=== PATIENT | female | born 1970 | race Caucasian/White ===

== ENCOUNTER 2017-05-10 22:23 | Inpatient (IN) | payer SELFPAY ==
[2017-05-11] MEDS ORDERED: Dextrose 50% Abboject 50 ML SYRINGE SLOW IVP PRN (00:30)
[2017-05-11] MEDS ORDERED: Ondansetron ODT 4 MG TAB PO PRN (00:30)
[2017-05-11] MEDS ORDERED: Morphine 2 MG/ML SYRINGE SLOW IVP PRN (00:30)
[2017-05-11] MEDS ORDERED: Dextrose 5% in Water 1,000 ML IV PRN (00:30)
[2017-05-11] MEDS ORDERED: Sodium Chloride 0.9% 1,000 ML IV SCH ×2 (00:33→00:45)
[2017-05-11 01:03] LABS: Hemoglobin A1c 11.3 % (4.0-6.0)
[2017-05-11 01:08] VITALS: BMI 33.4
--- NOTE | 2017-05-11 04:14 | HP-2 ---
CODE STATUS: FULL. PRIMARY CARE PHYSICIAN: Demar celeste. ATTENDING: Dr. Cornelius. PGY-1: Dr. Pina. CHIEF COMPLAINT: Cellulitis, right upper back. HISTORY OF PRESENT ILLNESS: This is a 47-year-old female that presents with worsening right upper b ack lesion. She states she thought it started as a pimple or an ant bite, but it continually progre ssed. She went to an outpatient facility and was given Keflex, Cipro and Tylenol #3 for the treatme nt. However, the lesion continued to progress and grow. She woke up and it was large and was hurti ng a lot more, so she went to the [facility] for treatment. In the [facility], she was gi jenny incision and drainage and then transferred to [place], because of lack of surgical backup. She de nied any fevers or chills. She denied any other illnesses. 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 PAST MEDICAL HISTORY: None. PAST SURGICAL HISTORY: Tubal ligation, adenoidectomy, left knee surgery. ALLERGIES: No known drug allergies. MEDICATIONS: None. SOCIAL HISTORY: She has a 89-[id number]-oars smoking history and is currently smoking. She denies any al cohol. She does admit to alcohol use socially. She denies any drug use. REVIEW OF SYSTEMS: General: She admits to fevers and chills. She denies any weight change, night sweats, or fatigue. Eyes: She denies any vision changes or eye pain. ENT: Denies any nasal conge stion, rhinorrhea, or sore throat. Respiratory: She denies any cough, congestion, shortness of chalino ath. Cardiovascular: Denies any chest pain, palpitations, edema. Gastrointestinal: She admits to nausea. Denies any vomiting, diarrhea, constipation, abdominal hussain n, GI bleeding. Genitourinary: She denies incontinence, dysuria. Skin: She does admit to the rash and lesion especially in right upper back. Musculoskeletal: Rich es any pain, tenderness, stiffness, swelling or arthritis in the joints. Neurologic: Denies weakne ss, numbness, syncope or seizures. Psychiatric: She denies anxiety or depression. PHYSICAL EXAMINATION: VITAL SIGNS: Blood pressure 120/82, pulse 92, respiration 16, temperature max 98.7, pulse ox 98% on room air, current weight is 100 kilos. GENERAL: She is alert and oriented x4. She is obese, appropriately interactive. EYES: PERRLA. Conjunctivae within normal limits. ENT: Nasal mucosa and oropharynx within normal limits. NECK: Supple, without lymphadenopathy, without thyromegaly, without bruit. CARDIOVASCULAR: Regular rate and rhythm, no murmur. Radial and pedal pulses were equal bilaterally . RESPIRATORY: Normal effort, no retractions. LUNGS: Clear to auscultation bilaterally. SKIN: Warm and dry. She did have a 10 cm x 3 cm area of erythema and induration over the area of [facility] right upper scapula. She also has multiple other scratching lesions all of her body. ABDOMEN: Soft, nontender to palpation. Bowel sounds are present x4. No mass or distention. EXTREMITIES: No clubbing, cyanosis or edema. MUSCULOSKELETAL: Structure, tone, muscle strength and range of motion within normal limits. NEUROLOGIC: No focal neurologic deficits. Sensation was within normal limits. Cranial nerves II t hrough XII grossly intact. GCS was 15. PSYCHIATRIC: She was appropriate. LABORATORY DATA: She had a white blood cell count of significant 20.1, platelet count 416, hemoglob in 14.1, hematocrit 44.3. She had 2% bands, 83% neutrophils. Sodium was 132, potassium 3.9, chlori de 101, bicarbonate 20, BUN 8, creatinine 0.88, glucose 323, calcium 8.9, total protein 7.2, albumin 3.9, AST 7, ALT 10, alkaline phosphatase 134. ASSESSMENT AND PLAN: A 47-year-old female who presents with: 1. Right upper back cellulitis, failed outpatient treatment. We have wound cultures pending from [facility]. We have blood cultures that we miriam here. We will continue her vancomycin and Zosyn. Give her IV fluids and check her progress. 2. Sepsis secondary to #1. Her white blood cell count and her pulse, it was over 100 on admission. We will track that. We will give IV fluids plus antibiotics. 3. Hyperglycemia, likely due to unknown diabetes mellitus. We will check hemoglobin A1c, get Accu- Cheks and put her on sliding scale insulin. 4. Disposition and length of hospital stay of inpatient, 2 midnights. Symptomatic medications will be provided. History and physical exam as well as management will be discussed with Dr. Quintanilla.
[2017-05-11 05:48] LABS: Anion Gap 11 mmol/L (10-20); BUN (Urea Nitrogen) 6 mg/dL (7.0-18.7); Calc. Creatinine Clearance 152 mL/min (70-130); Calcium 8.6 mg/dL (7.8-10.44); Carbon Dioxide 21 mmol/L (22-29); Chloride 105 mmol/L (98-107); Estimated GFR-MDRD 86
[2017-05-11 05:51] LABS: #Basophils 0.1 thou/uL (0.0-0.2); #Eosinphils 0.2 thou/uL (0.0-0.7); #Lymphocytes 3.7 thou/uL (1.20-3.40); #Monocytes 1.4 thou/uL (0.11-0.59); #Neutrophils 9.8 thou/uL (1.40-6.50); %Basophils 0.7 % (0.0-1.0); %Eosinophils 1.4 % (0.0-10.0); %Lymphocytes 24.5 % (21.0-51.0); %Monocytes 9.2 % (0.0-10.0); Mean Platelet Volume 8.3 fL (7.4-10.4); White Blood Cell (WBC) Count 15.2 thou/uL (4.8-10.8)
[2017-05-11] MEDS: Piperacillin/Tazobactam 3.375 GM in Sodium Chloride 0.9% 100 ML IVPB SCH ×3 (06:06→17:35)
[2017-05-11] MEDS: HumaLOG 300 UNITS/3 ML VIAL SC PRN ×3 (06:06→17:31)
[2017-05-11 06:27] LABS: Bilirubin Negative (Negative); Blood, Urine Negative (Negative); Glucose, Urine (Dipstick) >=1000 mg/dL (Negative); Ketone, Urine Negative (Negative); Nitrite Negative (Negative); Protein, Urine (Dipstick) Negative (Neg-Trace)
[2017-05-11 06:30] LABS: Bacteria/HPF Rare-Few HPF (None Seen); Hyaline Casts/LPF 0-3 HYALINE CAST LPF (0-3 Hyaline); RBC/HPF 0-3 HPF (0-3); Squamous Epithelial 0-3 HPF (0-3); WBC/HPF 0-3 HPF (0-3)
[2017-05-11 06:31] LABS: Yeast-All Forms 3+ HPF (None Seen)
--- NOTE | 2017-05-11 08:20 | PDOC.EVN ---
Attending Addendum - Attending Addendum I personally evaluated the patient and discussed the management with Dr. Pina. I agree with the History, Examination, Assessment and Plan documented in his H& P with any addition or exceptions noted below. Patient transferred to this institution for admission for recurrent/persistent abscess and overlying cellulitis of the upper back. A review of chart shows that patient has been seen in ER multiple times over the last 4-5 months for similar presentation, each time discharged on oral abx. The current episodes appears to have worsened somewhat after initiation of inpatient treatment, and therefore she has been admitted for IV abx. Due to the recurrence of her symptoms, I would suspect some sort of immunodeficient state, and that is likely her undiagnosed/untreated diabetes. A1c elevated, and she will be started on anti-diabetic medication, as well as sliding scale insulin to attain tight control of blood sugar in the setting of cutaneous infection, though I would recommend HIV testing to ensure no other cause of relative immunodeficient state. Await cultures that were obtained from I&D at outside ER and modify treatment as needed. Pain control as needed. Anticipate hospitalization of 2-3 days. Sepsis state appears to have resolved with IV abx and mild fluid bolus.
[2017-05-11 08:35] LABS: Amphetamine Not Detected (NotDetected); Methadone Not Detected (NotDetected); Methamphetamine Not Detected (NotDetected)
[2017-05-11] MEDS ORDERED: Famotidine/PF 20 mg/2ml Vial SLOW IVP SCH (09:00)
[2017-05-11] MEDS: metFORMIN 500 MG TAB PO SCH ×2 (09:23→17:30)
[2017-05-11] MEDS: Vancomycin HCl 1.5 GM in Sodium Chloride 0.9% 250 ML 300 ML IVPB SCH ×2 (09:29→20:57)
[2017-05-11] MEDS ORDERED: Fluconazole 100 MG TAB PO SCH (09:30)
[2017-05-11] MEDS: Piperacillin/Tazobactam 3.375 GM, Admixture Fee 1 EACH in Sodium Chloride 0.9% 100 ML IVPB SCH (17:56)
[2017-05-11] MEDS ORDERED: Famotidine 20 MG TAB PO SCH (21:00)
[2017-05-12] MEDS: Piperacillin/Tazobactam 3.375 GM, Admixture Fee 1 EACH in Sodium Chloride 0.9% 100 ML IVPB SCH ×4 (00:14→18:02)
[2017-05-12 05:31] LABS: #Eosinphils 0.2 thou/uL (0.0-0.7); #Lymphocytes 3.4 thou/uL (1.20-3.40); #Monocytes 1.2 thou/uL (0.11-0.59); #Neutrophils 7.8 thou/uL (1.40-6.50); %Basophils 0.3 % (0.0-1.0); %Eosinophils 1.7 % (0.0-10.0); %Lymphocytes 26.7 % (21.0-51.0); %Monocytes 9.2 % (0.0-10.0); Hematocrit 42.1 % (36.0-47.0); Mean Platelet Volume 8.2 fL (7.4-10.4); Red Blood Cell (RBC) Count 4.82 mill/uL (4.20-5.40); White Blood Cell (WBC) Count 12.6 thou/uL (4.8-10.8)
[2017-05-12 05:42] LABS: Anion Gap 12 mmol/L (10-20); BUN (Urea Nitrogen) 10 mg/dL (7.0-18.7); Calc. Creatinine Clearance 150 mL/min (70-130); Calcium 9.4 mg/dL (7.8-10.44); Carbon Dioxide 27 mmol/L (22-29); Chloride 102 mmol/L (98-107); Estimated GFR-MDRD 84
[2017-05-12] MEDS: HumaLOG 300 UNITS/3 ML VIAL SC PRN ×3 (05:47→18:02)
[2017-05-12 08:23] LABS: Vancomycin, Trough 8.2 ug/mL
[2017-05-12] MEDS ORDERED: Dextrose 50% Abboject 50 ML SYRINGE SLOW IVP PRN (08:38)
[2017-05-12] MEDS ORDERED: Dextrose 5% in Water 1,000 ML IV PRN (08:38)
--- NOTE | 2017-05-12 08:39 | PDOC.FM ---
- Subjective Subjective: FIONA overnight, pt ambulating halls this AM. Denies any fever/chills. VSS, afebrile. Pt staes a bit more sore today than yesterday. - Objective MAR Reviewed: Yes Vital Signs & Weight: Vital Signs (12 hours) Temp Pulse Resp BP Pulse Ox 05/12/17 07:39 98.1 F 94 16 144/92 H 97 Weight Admit Weight 99.79 kg Weight 99.79 kg I&O: 05/11/17 05/12/17 05/13/17 06:59 06:59 06:59 Intake Total 3330 Balance 3330 Result Diagrams: 05/12/17 04:39 05/12/17 04:39 <Yvon Wright - Last Filed: 05/12/17 08:37> - Objective Vital Signs & Weight: Vital Signs (12 hours) Temp Pulse Resp BP Pulse Ox 05/12/17 07:39 98.1 F 94 16 144/92 H 97 Weight Admit Weight 99.79 kg Weight 99.79 kg I&O: 05/11/17 05/12/17 05/13/17 06:59 06:59 06:59 Intake Total 3330 Balance 3330 Result Diagrams: 05/12/17 04:39 05/12/17 04:39 <William Cornelius R - Last Filed: 05/12/17 10:22> Phys Exam - Physical Examination Constitutional: NAD HEENT: PERRLA Neck: full ROM Respiratory: no wheezing, clear to auscultation bilateral Cardiovascular: RRR Gastrointestinal: soft, positive bowel sounds Musculoskeletal: no edema, pulses present Neurological: non-focal, moves all 4 limbs Psychiatric: normal affect, A&O x 3 Deviation from normal: lesion post. aspect of R-shoulder. Midly improved erythema. TTP. No fluctua <Yvon Wright K - Last Filed: 05/12/17 08:37> Dx/Plan (1) Cellulitis Code(s): L03.90 - CELLULITIS, UNSPECIFIED Status: Acute Plan: Cont. w/ IV abx, gram positive cocci on pre-rose wound cx likely MRSA w/ underlying abscess vanc trough sub-therapeutic, will increase to 2 gm q 12 hr w/ repeat trouph tomorrow night 1 hr before the 4th dose BCx negative MRSA screening nare swab pending. Will rx w/ bactroban if positive. Cont. w/ wound care (2) Abscess of back Code(s): L02.212 - CUTANEOUS ABSCESS OF BACK [ANY PART, EXCEPT BUTTOCK] Status : Acute Plan: S/p I&D cont. w/ wound care + abx (3) T2DM (type 2 diabetes mellitus) Status: Acute Plan: BG above goal in setting of infection to promote wound healing and clearance of infection Will increase to moderate SSI and plan to titrate to 1,000 mg of metformin after 1 wk of 500 mg BID (4) Tobacco use Code(s): Z72.0 - TOBACCO USE Status: Acute Plan: Counseling for cessation to promote wound healing Nicoderm patch <Yvon Wright - Last Filed: 05/12/17 08:37> Attending Addendum - Attending Addendum I personally evaluated the patient and discussed the management with Dr. Wright. I agree with the History, Examination, Assessment and Plan documented above with any addition or exceptions noted below. Patient has improvement in pain and receding erythema on her cellulitis. Wound care seeing and assisting with care of her abscess s/p drainage. She is afebrile and WBC downtrending. Cultures showing Gram pos cocci. Will increase Vanc dose at initially subtherapeutic. Will transition to PO possibly tomorrow once cultures result. Due to severity of abscess and overlying cellulitis, not ready for dischage today. Continue metformin and increase sliding scale insulin regimen to obtain better control of blood sugars. <William Cornelius - Last Filed: 05/12/17 10:22>
[2017-05-12] MEDS: Lisinopril 2.5 MG TAB PO SCH (08:52)
[2017-05-12] MEDS: metFORMIN 500 MG TAB PO SCH ×2 (08:53→18:02)
[2017-05-12] MEDS ORDERED: Vancomycin HCl 2 GM in Sodium Chloride 0.9% 250 ML 300 ML IVPB SCH (09:00)
[2017-05-12] MEDS: Vancomycin HCl 2 GM, Admixture Fee 1 EACH in Sodium Chloride 0.9% 500 ML IVPB SCH ×2 (10:36→21:27)
[2017-05-12] MEDS: Acetaminophen 325 MG TAB PO PRN (16:07)
[2017-05-12 21:02] VITALS: TEMP 98.3
[2017-05-13] MEDS: Piperacillin/Tazobactam 3.375 GM, Admixture Fee 1 EACH in Sodium Chloride 0.9% 100 ML IVPB SCH ×3 (00:55→11:29)
[2017-05-13 05:05] LABS: #Basophils 0.1 thou/uL (0.0-0.2); #Eosinphils 0.2 thou/uL (0.0-0.7); #Lymphocytes 3.7 thou/uL (1.20-3.40); #Monocytes 1.1 thou/uL (0.11-0.59); #Neutrophils 6.6 thou/uL (1.40-6.50); %Basophils 0.8 % (0.0-1.0); %Eosinophils 1.9 % (0.0-10.0); Mean Platelet Volume 8.4 fL (7.4-10.4); White Blood Cell (WBC) Count 11.7 thou/uL (4.8-10.8)
[2017-05-13 05:24] LABS: Anion Gap 11 mmol/L (10-20); BUN (Urea Nitrogen) 7 mg/dL (7.0-18.7); Calc. Creatinine Clearance 152 mL/min (70-130); Calcium 8.5 mg/dL (7.8-10.44); Carbon Dioxide 23 mmol/L (22-29); Chloride 105 mmol/L (98-107); Estimated GFR-MDRD 86
[2017-05-13] MEDS: HumaLOG 300 UNITS/3 ML VIAL SC PRN ×3 (05:37→16:25)
[2017-05-13 07:21] VITALS: BP 115/77
[2017-05-13] MEDS: metFORMIN 500 MG TAB PO SCH ×2 (07:30→16:25)
[2017-05-13] MEDS: Lisinopril 2.5 MG TAB PO SCH (07:30)
--- NOTE | 2017-05-13 07:35 | PDOC.FM ---
- Subjective Subjective: FIONA overnight, afebrile, no new complaints this AM. Pt has been ambulating halls. - Objective MAR Reviewed: Yes Vital Signs & Weight: Vital Signs (12 hours) Temp Pulse Resp BP Pulse Ox 05/13/17 07:30 83 05/13/17 07:19 98.3 F 83 16 115/77 97 05/12/17 20:00 98.3 F 98 16 143/88 H 96 Weight Admit Weight 99.79 kg Weight 99.79 kg I&O: 05/12/17 05/13/17 05/14/17 06:59 06:59 06:59 Intake Total 3330 Balance 3330 Result Diagrams: 05/13/17 04:34 05/13/17 04:34 <Yvon Wright - Last Filed: 05/13/17 07:32> - Objective Vital Signs & Weight: Vital Signs (12 hours) Temp Pulse Resp BP Pulse Ox 05/13/17 07:41 98.3 F 83 16 05/13/17 07:30 83 05/13/17 07:19 98.3 F 83 16 115/77 97 Weight Admit Weight 220 lb Weight 220 lb I&O: 05/12/17 05/13/17 05/14/17 06:59 06:59 06:59 Intake Total 3330 Balance 3330 Result Diagrams: 05/13/17 04:34 05/13/17 04:34 <Tomy Quintanilla - Last Filed: 05/13/17 10:24> Phys Exam - Physical Examination Constitutional: NAD HEENT: PERRLA Neck: no nodes Respiratory: no wheezing Cardiovascular: RRR, no rub Gastrointestinal: soft, no distention Musculoskeletal: pulses present Neurological: moves all 4 limbs Psychiatric: A&O x 3 Deviation from normal: improved erythema, CDI <Yvon Wright - Last Filed: 05/13/17 07:32> Dx/Plan (1) Cellulitis Code(s): L03.90 - CELLULITIS, UNSPECIFIED Status: Acute Plan: Near English sensitive staph on wound culture Improved erythema this AM and patient w/ downtrending WBC Wound care supplies and teaching through nursing/CM Will plan for tentative discharge today s/p AM dose of vancomycin on PO clinda x 14 days Pt to follow-up start of next week to eval for cont. improvement w/ [facility] as she is unfunded (2) Abscess of back Code(s): L02.212 - CUTANEOUS ABSCESS OF BACK [ANY PART, EXCEPT BUTTOCK] Status : Acute Plan: cont. w/ wound care Improved w/ no signs of systemic infection at this time (3) T2DM (type 2 diabetes mellitus) Status: Acute Plan: BG above goal in setting of infection to promote wound healing and clearance of infection Pt will likely need insulin but hesitant to start insulin in setting of acute infection and no trial of oral diabetic medication Will increase to moderate SSI and plan to titrate to 1,000 mg of metformin after 1 wk of 500 mg BID Pt to follow-up w/ [facility] for contiued monitoring of her infection and diabetes (4) Tobacco use Code(s): Z72.0 - TOBACCO USE Status: Acute Plan: Counseling for cessation to promote wound healing Nicoderm patch <Yvon Wright - Last Filed: 05/13/17 07:32> Attending Addendum - Attending Addendum I personally evaluated the patient and discussed the management with Dr. Thomas I agree with the History, Examination, Assessment and Plan documented above with any addition or exceptions noted below. Patient is doing well and may go home. We will send home on clindamycin with followup through [facility]. She has been instructed in new diabetes care. We reiterated the diet with her and need to stop smoking. <Tomy Quintanilla - Last Filed: 05/13/17 10:24>
[2017-05-13] MEDS: Vancomycin HCl 2 GM, Admixture Fee 1 EACH in Sodium Chloride 0.9% 500 ML IVPB SCH (10:09)
[2017-05-13] MEDS: Acetaminophen 325 MG TAB PO PRN (10:31)
--- NOTE | 2017-05-14 01:24 | DIS-2 ---
DATE OF ADMISSION: 05/11/2017 DATE OF DISCHARGE: 05/13/2017 ADMITTING ATTENDING: Dr. Cornelius. DISCHARGE ATTENDING: Dr. Quintanilla. RESIDENT: Yvon Wright M.D. CONSULTATIONS: Wound Care. PROCEDURE: Wound care. PRIMARY DIAGNOSES: 1. Cellulitis with underlying abscess, secondary to Staphylococcus aureus infection. 2. Type 2 diabetes mellitus. SECONDARY DIAGNOSIS: Tobacco use. DISCHARGE MEDICATIONS: 1. Clindamycin 450 mg p.o. q.i.d. for 14 days. 2. Metformin 500 mg p.o. b.i.d. for 1 week, then 1000 mg p.o. b.i.d. 3. Lisinopril 2.5 mg p.o. daily. DISCONTINUED MEDICATIONS: None. HISTORY OF PRESENT ILLNESS: The patient is a 47-year-old female with no past medical history beside s tobacco use, who initially presented to an outside ER for evaluation of a lesion on her right uppe r back on Monday earlier this week. The patient was discharged home on Keflex and Bactrim double [facility] for presumed cellulitis. Patient picked up the prescription on Monday. She proceeded to ta ke all of Monday's doses of medication and the first dose on Monday before going back to the ER secondary to no improvement of this lesion. The patient denied any fevers, chills, nausea, vomiting during this time. The patient was reevaluated at outside ER and incision and drainage was performe d on the lesion and a wound culture obtained. The patient was started on IV vancomycin and transfer red to [facility] for admission. Blood cultures obtained at [facility] grew out negative at 48 hours and initial wound culture growing out near pansensitive Staph aureus, resistant to amoxicillin and piperacillin. The patient remained afebrile throughout her entire hospital stay. The patient was placed on metformin and lisinopril for her new onset diabetes. Diabetes education was performed and wound care was performed during her hospitalization. The patient's daughter was taught wound c are for her lesion prior to discharge home. Patient did have good improvement in the erythema surro unding her cellulitis with underlying abscess on the posterior right shoulder while on IV antibiotic s. The patient is to follow up in the outpatient setting early next week to monitor for continued i mprovement while on p.o. clindamycin. Patient was counseled on diabetic diet and exercise to help i mprove her wound healing as well as tobacco cessation. DISPOSITION: Stable. DISCHARGE INSTRUCTIONS: 1. Location: Home. 2. Followup: Follow up with [facility] in 3-4 days for reevaluation of wound and contin ued improvement. 3. Activity: As tolerated.
== END 2017-05-13 17:44 | disposition home or self-care (01) | DRG 872 ==
LOC: ERS 22:23 → T4-B 05-11 00:28
PROVIDERS: ADMIT Student in an Organized Health Care Education/Training Program; ATTEND Student in an Organized Health Care Education/Training Program
DX: A41.9 Sepsis, unspecified organism (principal); E11.65 Type 2 diabetes mellitus with hyperglycemia; L02.212 Cutaneous abscess of back [any part, except buttock and flank]; L03.312 Cellulitis of back [any part except buttock and flank]; B95.61 Methicillin susceptible Staphylococcus aureus infection as the cause of diseases classified elsewhere; Z16.11 Resistance to penicillins; Z16.39 Resistance to other specified antimicrobial drug; F17.210 Nicotine dependence, cigarettes, uncomplicated
CPT/HCPCS: 36415; 36416; 80048; 80202; 80306; 81001; 83036; 85025; 87040; 87081; 87086; 87389; 99285; A4216; J2270; J2543; J3370; J7050; S0028